=== PATIENT | female | born 1985 | race Caucasian/White ===

== ENCOUNTER 2024-05-01 04:27 | Day surgery (SDC) | payer OTHER, SELFPAY ==
[2024-04-30 18:24] VITALS: BP 143/90
--- NOTE | 2024-04-30 18:24 | ED.GENMED ---
ED Provider Triage
<Nicolas Cagle PA-C - Last Filed: 04/30/24 18:27>
-
Patient seen by provider in Triage?: Seen in Triage
Attestation: A medical screening examination has been initiated by a qualified medical provider. Based on the assessment performed at this time, it has been determined that an emergent medical condition may exist and the patient has been informed
that further medical evaluation and possible additional diagnostic testing may be needed.
HPI: 39-year-old female presenting to the emergency department for evaluation of abdominal pain. Patient had a miscarriage 3 weeks ago and has had intermittent bleeding since. Has had her hormone levels trended and states that they have yet to go
back to 0 but she did have an ultrasound done over the last 48 hours which reportedly showed an empty uterus. Today patient states she started to get pain and was told by the FIRE FIGHTER if she ever developed pain that she should come to the emergency
department. Patient tearful but in no acute distress. Labs ordered.
GENERAL: Alert , in no apparent distress
EYE: No visual abnormalities.
NECK: Trachea midline
ENT: No visible abnormalities.
LUNGS: No acute respiratory distress
NEUROLOGICAL: Alert and oriented
SKIN: Skin intact. No visible changes.
MUSCULOSKELETAL: Moving extremities normally
PSYCH: Normal and appropriate interaction.
This is a medical evaluation conducted in person to initiate diagnostic evaluation and provide initial therapeutics. Please see further documentation by the treating clinician.
History of Present Illness
<Nicolas Cagle PA-C - Last Filed: 04/30/24 18:27>
General
Chief Complaint: Abdominal Pain
Time Seen by Provider: 04/30/24 20:00
<JIA Barrett - Last Filed: 05/01/24 01:03>
General
Source: patient
Exam Limitations: none
History of Present Illness
History of Present Illness:
This is a 39 year old female that comes in with c/o vaginal bleeding and Elevated HCG. States that she was told she has a miscarriage 3 weeks ago. States that she has had vaginal bleeding for 3 weeks but it does seem now to be slowing down. State
that she went to her [facility]RE [facility] and her HCG was first 79, then it went up to 1500. States that today she started with right sided abd pain that went into her back. States that she has had some nausea. Denies any fever, chills, chest pain, SOB,
vomiting, diarrhea, headache, dizziness, urinary burning.
Past History
<JIA Barrett - Last Filed: 05/01/24 01:03>
Past History
ED Past Medical History: None; Negative Asthma, HTN, Hypercholesterolemia or NIDDM
ED Past Surgical History: None
Social History
Tobacco: Non-smoker
Alcohol: Occasional
Personal: Other (Seperated)
Living: with family
Review of Systems
<JIA Barrett - Last Filed: 05/01/24 01:03>
Review of Systems
All Other Systems: ROS reviewed and negative except as documented in HPI and ROS
Constitutional: Reports no symptoms; Denies fever or chills
EENT: Reports no symptoms
Respiratory: Reports no symptoms; Denies cough or trouble breathing
Cardiac: Reports no symptoms; Denies chest pain
ABD/GI: Reports abdominal pain and nausea; Denies vomiting or diarrhea
: Reports no symptoms; Denies dysuria, frequency or urgency
Musculoskeletal: Reports no symptoms
Skin: Reports no symptoms
Neurological: Reports no symptoms; Denies dizzy or headache
Psychiatric: Reports no symptoms
Phy Exam
<JIA Barrett - Last Filed: 05/01/24 01:03>
General Physical Exam
General Presentation: well appearing and no apparent distress
General age: appears stated age
General Skin: warm and dry
General Habitus: normal
General Mental: alert
General Hydration: appears well hydrated
ENT Exam
ENT Exam: TM's normal, pharynx normal and neck supple
Eye Exam
Eye Exam: EOMI
Cardiovascular Exam
Cardiovascular Exam: regular rate/rhythm, no edema, no murmur and normal peripheral pulses
Pulmonary Exam
Pulmonary Exam: lungs clear, no respiratory distress, no rales, chest non tender, no crackles, no rhonchi, no wheezing and no cough
Gastrointestinal Exam
Gastrointestinal Exam: normal bowel sounds, soft, no organomegaly, no pulsatile mass, non distended and tender (Lower abd tenderness with palpation)
Genitourinary Exam Female
Vaginal Exam: blood (Scant amount of bleeding noted on pad)
Musculoskeletal Exam
Musculoskeletal Exam: full ROM and no edema
Skin Exam
Skin Exam: normal color, warm/dry, no rash and no petechia
Psychiatric Exam
Psychiatric Exam: normal mood/affect
Course
<Nicolas Cagle PA-C - Last Filed: 04/30/24 18:27>
Orders/Labs/Results
Orders:
Orders
04/30/24 18:35
Beta HCG Quantitative Urgent
Is this a screen?: No
Complete Blood Count/With Diff Urgent
Comprehensive Metabolic Panel Urgent
Lipase Urgent
Urinalysis Reflex To Culture Urgent
Date Specimen was Collected: 04/30/24
Time Specimen was Collected: 18:31
Urine Microscopic Reflex Cult Urgent
04/30/24 20:22
0.9% Sodium Chloride 1000 ml [Nss] 1,000 ml IV BOLUS
US W Transvaginal Urgent
Comment: said she had a miscarrage 3 weeks ago, HCG up,
Reason For Exam: Bleeding for three weeks. right sided abd pain
Abnormal Lab Results
04/30/24
18:35
Hct 35.6 L %
(37.0-47.0)
Glucose 109 H mg/dl
(70-99)
Ur Occult Blood Reflex 4+ A
(Negative)
Urine RBC 30-40 A /HPF
(0-2)
04/30/24 18:35
04/30/24 18:35
Vital Signs
Initial and Last Documented VS:
Initial Vital Signs
Temp Pulse Resp BP Pulse Ox
98.3 F 86 18 143/90 100
04/30/24 18:24 04/30/24 18:24 04/30/24 18:24 04/30/24 18:24 04/30/24 18:24
Last Documented Vital Signs
Temp Pulse Resp BP Pulse Ox
98.7 F 82 18 106/68 98
04/30/24 23:45 04/30/24 23:45 04/30/24 23:45 04/30/24 23:45 04/30/24 23:45
<JIA Barrett - Last Filed: 05/01/24 01:03>
Orders/Labs/Results
Orders:
Orders
04/30/24 18:35
Beta HCG Quantitative Urgent
Is this a screen?: No
Complete Blood Count/With Diff Urgent
Comprehensive Metabolic Panel Urgent
Lipase Urgent
Urinalysis Reflex To Culture Urgent
Date Specimen was Collected: 04/30/24
Time Specimen was Collected: 18:31
Urine Microscopic Reflex Cult Urgent
04/30/24 20:22
0.9% Sodium Chloride 1000 ml [Nss] 1,000 ml IV BOLUS
US W Transvaginal Urgent
Comment: said she had a miscarrage 3 weeks ago, HCG up,
Reason For Exam: Bleeding for three weeks. right sided abd pain
Abnormal Lab Results
04/30/24
18:35
Hct 35.6 L %
(37.0-47.0)
Glucose 109 H mg/dl
(70-99)
Ur Occult Blood Reflex 4+ A
(Negative)
Urine RBC 30-40 A /HPF
(0-2)
04/30/24 18:35
04/30/24 18:35
Glucose nonfasting. Urine negative for infection. Lipase normal at 121, HCG 1368.70
Vital Signs
Initial and Last Documented VS:
Initial Vital Signs
Temp Pulse Resp BP Pulse Ox
98.3 F 86 18 143/90 100
04/30/24 18:24 04/30/24 18:24 04/30/24 18:24 04/30/24 18:24 04/30/24 18:24
Last Documented Vital Signs
Temp Pulse Resp BP Pulse Ox
98.7 F 82 18 106/68 98
04/30/24 23:45 04/30/24 23:45 04/30/24 23:45 04/30/24 23:45 04/30/24 23:45
<JIA Barrett - Last Filed: 05/01/24 01:03>
MDM/Problems Addressed
Differential Diagnosis Includes:
Tubal , Bleeding in early
MDM/Problems Addressed:
This is a 39 year old female that come sin with c/o having a miscarriage 3 weeks ago. States that she has been bleeding for three weeks and her HCG is going up. Today she started with right sided abd pain that went into her back.
Will check labs and get Ultrasound.
Spoke with Patient about US. Will speak with FIRE FIGHTER here. Spoke with Dr. Courtney and she will come see patient as she reviewed US and does not think that patient is appropriate for methotrexate. Feels that patient will most likely need surgical
intervention. She will be down to see patient.
Dr. Courtney is here to see patient. Will take patient to the OR.
Chronic conditions affecting care:
NA
Acute Exacerbation and/or Progression of Chronic Illness:
NA
<JIA Barrett - Last Filed: 05/01/24 01:03>
*Radiology
Radiology exam reviewed: radiology read reviewed (US=NO intrauterine identified. Complex mass/fluid collection the right adnexa. If the patient is , this could be an ectopic . This could also be complex fluid such as
hemorrhagic products. Additional moderate free fluid in the pelvis which has mild internal echoes. Simple ) and other (US cont- left ovarian cyst. )
*Pulse Oximetry
Patient hypoxic: no
*EKG
Interpreted by ED Provider?: NA
Rate: EKG- N/A
*[employer] Interpretation
Rate: [employer]- N/A
*Critical Care Note
Total Time (30-74mins, 75-104mins- exclusive of procedures): Not Applicable
ED Attending Note
<Nicolas Cagle PA-C - Last Filed: 04/30/24 18:27>
-
Portions of this chart may have been created with voice recognition software.� Occasional wrong word or��sound alike� substitutions may have occurred due to the inherent limitations of voice recognition software.
Discharge Plan
Departure
Patient Disposition: OR
Date of Disposition: 05/01/24
Time of Disposition: 00:59
Presentation/result/management discussed w/ accepting MD/DO: Dr. Courtney
Patient with high blood pressure during this ER visit?: No
Condition: Good
Covid-19: Not Applicable
Discharge Problem:
Ectopic , Possible tubal rupture
Referrals:
NONE,* [Family Provider] -
Interventions
Interventions:
*General Assessment Last Done: 04/30/24 18:29
ED- Fall Risk Assessment Last Done: 04/30/24 23:00
*ED COVID-19 Vaccine History Last Done: 04/30/24 20:44
LC-Gsbtds-[id number] Assessment Last Done: 04/30/24 23:00
Discharge Date and Time
Print Language: TUNISIAN
[2024-04-30 18:45] LABS: % Basophils 0.6 % (0-2); % Eosinophils 2.7 % (0-6); % Immature Granulocytes 0.3 % (0-0.5); % Lymphocytes 30.3 % (20.5-51.1); % Monocytes 7.8 % (1.7-9.3); % Neutrophils 58.3 % (42.2-75.2); Absolute Basophils 0.1 10^3/uL (0-0.2); Absolute Eosinophils 0.2 10^3/uL (0-0.7); Absolute Lymphocytes 2.4 10^3/uL (1.2-3.4); Absolute Monocytes 0.6 10^3/uL (0.1-0.6); Absolute Neutrophils 4.5 10^3/uL (1.4-6.5); Hematocrit 35.6 % (37.0-47.0); Hemoglobin 12.2 g/dL (12.0-16.0); Mean Corp Hgb Conc. 34.3 g/dL (33.0-37.0); Mean Corpuscular Hgb 28.2 pg (27.0-31.0); Mean Corpuscular Volume 82.4 fL (81.0-99.0); Mean Platelet Volume 9.5 fL (7.4-10.4); Nucleated Red Blood Cells % 0 %; Platelet Count 245 10^3/uL (130-400); Red Blood Cell Count 4.32 10^6/uL (4.20-5.40); Red Cell Dist. Width 12.6 % (11.5-14.5); Urine Albumin Negative (Neg - Trace); Urine Bilirubin Negative (Negative); Urine Character Clear (Clear); Urine Color Straw; Urine Glucose Negative (Negative); Urine Ketone Negative (Negative); Urine Leukocyte Negative (Negative); Urine Nitrite Negative (Negative); Urine Occult Blood 4+ (Negative); Urine Specific Gravity 1.015 (<1.030); Urine Urobilinogen Negative (Neg - 1+); White Blood Cell Count 7.8 10^3/uL (4.8-10.8)
[2024-04-30 19:05] LABS: ALT (SGPT) 16 U/L (0-35); AST (SGOT) 24 U/L (14-36); Alkaline Phosphatase 48 U/L (38-126); Blood Urea Nitrogen 14 mg/dl (7-17); Calcium 9.7 mg/dl (8.4-10.2); Carbon Dioxide 25 mmol/L (22-30); Glucose 109 mg/dl (70-99); Sodium 140 mmol/L (135-145); Total Bilirubin 0.3 mg/dl (0.2-1.3); Total Protein 7.8 g/dl (6.3-8.2); eGFR > 60.00
[2024-04-30 19:08] LABS: Urine Red Blood Cell 30-40 /HPF (0-2); Urine Squamous Cell 16-20 /LPF (Few); Urine White Cell 0-2 /HPF (0-5)
[2024-04-30 19:12] LABS: Chloride 102 mmol/L (98-107)
[2024-04-30 19:47] LABS: Lipase 121 U/L (23-300)
[2024-04-30] MEDS: NSS 1000 IV (20:42)
[2024-04-30 20:44] VITALS: BP 118/72; BMI 22.7
[2024-04-30 23:45] VITALS: BP 106/68
--- NOTE | 2024-05-01 00:49 | EDRN ---
Dr. Rolon at bedside seeing patient
--- NOTE | 2024-05-01 03:00 | HP.FOC2 ---
Focused History & Physical
Chief Complaint
HPI:
Chief Complaint: RLQ Pain
HPI / Indication for Planned Procedure:
39yo with LMP 03/02 presented to the ED on 04/30 with c/o RLQ pain that was very intense. She had a +UPT in early March and informed her MEDICATION AID (office in [place]). She states her MEDICATION AID then ordered bloodwork. HCG 04/10: 66, 04/21:470, 04/27: 1542.
She also started bleeding 3 weeks ago soon after her +UPT, she says it was heavy for 2 days and then has been light. Her MEDICATION AID did an US in their office on 04/28 which per patient showed nothing including no IUP. She was told she was having a
miscarriage but should she have any pain to present to the hospital. Her pain started on 04/30 so she presented here.
Relevant Past Medical History: Negative and Other ( x2)
Relevant Social History: ETOH
Relevant Family History: Negative
Relevant Past Surgical History: Negative
Review of Systems
Review of Pertinent Systems: All Systems Negative Except for the Following Positives (+abdominal pain. )
Medication
See Medication form for detailed medications: Yes
Medications Reviewed: Yes
Allergies and Reactions
Patient has Allergies: No
Noted Allergies and Reactions:
Allergy/AdvReac Type Severity Reaction Status Date / Time
No Known Allergies Allergy Verified 04/30/24 18:23
Pertinent Physical Exam
All Other Systems: Negative
Abdomen: Normal (no ttp no r/g, soft, nd)
Diagnosis / Assessment
39yo with RLQ pain, adnexal mass suspicious for an ectopic
Plan / Procedure
Reviewed patients HCG values that she had with her MEDICATION AID and today, certainly not an appropriate rise, highly suspicious for an ectopic . In addition to that, her US is also very concerning not just for an ectopic but one that may be
bleeding/rupturing given the presence of blood in the pelvis. Though patient is hemodynamically stable, she is not a candidate for medical therapy due to possible early rupture. We therefore discussed proceeding with surgical intervention- Procedure
of a diagnostic laparoscopy, possible right salpingectomy reviewed. Risks of bleeding, infection, injury to surrounding structures need for additional surgery all reviewed. I also reviewed post-op expectations Patient should be able to go home later
this morning as long as procedure goes well. All questions answered and consents signed.
Imaging Data
-
U/S: Uterus 7.5x 3.5x 4.1cm. No significant thickening of the endometrial cavity 9mm. NO IUP is noted. Right ovary is not definitively seen. There is a complex mass/fluid collection in the right adnexa measuring 5.4x2.2x 5.8cm, could be an ectopic
. There is no associated blood flow. Left Ovary 2.5cm contains a simple cyst 1.7cm. Moderate free fluid in the pelvis which is complex likely hemorrhagic products
Vital Signs / Labs
-
Vital Signs and Labs:
Temp Pulse Resp BP Pulse Ox
97.8 F 95 14 119/59 100
05/01/24 05:00 05/01/24 05:00 05/01/24 05:00 05/01/24 04:55 05/01/24 04:45
04/30/24 18:35
04/30/24 18:35
04/30/24
18:35
Hct 35.6 L
Glucose 109 H
Ur Occult Blood Reflex 4+ A
Urine RBC 30-40 A
HC
[2024-05-01 04:35] VITALS: BP 121/52; BP 143/90
[2024-05-01 04:40] VITALS: BP 121/52
[2024-05-01 04:45] VITALS: BP 115/65
[2024-05-01 04:55] VITALS: BP 119/59
[2024-05-01] MEDS: NORMOSOL-R/PLASMALYTE-A 1000 IV (05:40)
[2024-05-01] MEDS: TORADOL 15 MG IV ×2 (05:47→12:18)
[2024-05-01 07:55] VITALS: BP 107/60
--- NOTE | 2024-05-01 09:31 | CM ---
entry level account manager reviewed patient's chart and patient was admitted as PSR not OBS, patient made aware. Patient states that she lives with her 2 children in a multilevel home, patient is independent with adl's and ambulation, no dme, patient drives,
patient is for discharge to home today no needs.
PCP: Dr. Villarreal
Pharmacy: [facility]
Plan; Home today no needs.
[2024-05-01 12:32] VITALS: BP 114/59
== END 2024-05-01 13:18 | disposition home or self-care (01) ==
LOC: PACU 04:27
PROVIDERS: Physician Assistant Medical; ATTENDING PHYSICIAN Obstetrics & Gynecology; EMERGENCY PHYSICIAN Emergency Medicine
DX: O00.101 Right tubal pregnancy without intrauterine pregnancy (principal); O46.90 Antepartum hemorrhage, unspecified, unspecified trimester; K66.1 Hemoperitoneum; O24.119 Pre-existing type 2 diabetes mellitus, in pregnancy, unspecified trimester; Z3A.00 Weeks of gestation of pregnancy not specified
CPT/HCPCS: 59151; 88305; 76801; 76817; 80053; 81003; 81015; 83690; 84702; 85025; 96360; 99285; C1776